=== PATIENT | female | born 1940 | race Caucasian/White ===

== ENCOUNTER 2017-12-20 11:20 | Emergency (ER) | payer OTHER ==
[~2017-12-20] VITALS: Ht 165.1 cm; Wt 80.2 kg
[2017-12-20] MEDS ORDERED: REGLAN10 MG PO (13:27)
[2017-12-20 13:46] VITALS: BP 165/89
== END 2017-12-20 13:47 | disposition home or self-care (01) ==
LOC: EME 11:20
DX: S06.0X0A Concussion without loss of consciousness, initial encounter (principal); S63.502A Unspecified sprain of left wrist, initial encounter; S40.022A Contusion of left upper arm, initial encounter; W10.9XXA Fall (on) (from) unspecified stairs and steps, initial encounter; E78.5 Hyperlipidemia, unspecified; K21.9 Gastro-esophageal reflux disease without esophagitis
CPT/HCPCS: 70450; 72125; 73030; 73060; 73080; 73110; 99281; 99283